=== PATIENT | female | born 1990 | race Caucasian/White ===

== ENCOUNTER 2022-11-19 23:20 | Observation (INO) | payer MEDICAID, SELFPAY ==
[2022-11-19 23:30] VITALS: BP 141/83; PULSE 90; RESP 16; TEMP 36.7; O2SAT 98; BMI 40.8
[2022-11-19 23:44] VITALS: BP 121/84; PULSE 88; RESP 20; O2SAT 97
--- NOTE | 2022-11-19 23:54 | CTR_ITS ---
PROCEDURE INFORMATION: Exam: CT Head Without Contrast Exam date and time: 11/20/2022 12:08 AM Age: 32 years old Clinical indication: Stroke-like symptoms; Dizziness/giddiness and visual disturbance TECHNIQUE: Imaging protocol: Computed tomography of the head without contrast. Radiation optimization: All CT scans at this facility use at least one of these dose optimization techniques: automated exposure control; mA and/or kV adjustment per patient size (includes targeted exams where dose is matched to clinical indication); or iterative reconstruction. Other technique: STROKE PROTOCOL was implemented. REPORTING DATA: Count of CT and Cardiac NM exams in prior 12 months: This patient has received 0 known CTs and 0 known cardiac nuclear medicine studies in the 12 months prior to the current study. COMPARISON: No relevant prior studies available. RADIATION DOSE METRICS: Total DLP (mGy-cm): 1940.58 FINDINGS: Brain: There is no evidence of intracranial hemorrhage. No mass effect or midline shift. Unremarkable white matter. Subtle hypodensity in bilateral parieto-occipital regions. Cerebral ventricles: The ventricles and sulci are appropriate for the patient's age. Paranasal sinuses: There are no air-fluid levels. Mastoid air cells: The visualized mastoid air cells are well aerated. Auditory system: There is an ornamental metallic pin through the left ear pinna. Bones/joints: No acute fracture. Soft tissues: Unremarkable. CT/CT head wo con* [id number] IMPRESSION: Subtle hypodensity in bilateral parieto-occipital regions, raising the question of posterior reversible encephalopathy (PRES). MRI may be helpful for further characterization. ASSESSMENT: ASPECTS ([place] Stroke Program Early CT Score) is 10.
--- NOTE | 2022-11-19 23:55 | ED_ITS ---
HPI - General Adult General: Chief complaint: Eye Problems Stated complaint: eye / head pain Time Seen by Provider: 11/19/22 23:45 History of Present Illness: Patient is a 32-year-old female that presents to the emergency department with complaints of dizziness. Onset of symptoms was prior to arrival. Patient states that she had trouble focusing. She denies any nausea associated with the symptoms but feels like the room is spinning. She denies fever, chills, chest pain, shortness of breath, cough, congestion. She denies abdominal pain, nausea vomiting diarrhea. Patient denies any dysuria, increased frequency, increased urgency. Denies any changes in her menstrual cycle. Review of Systems General: Reports: 10 or more systems reviewed and unremarkable except in HPI and below Physical Exam Const: COMMON NORMALS: no acute distress, patient oriented x3 and alert GENERAL APPEARANCE: cooperative ORIENTATION/CONSCIOUSNESS: Yes awake, Yes oriented to person, Yes oriented to place and Yes oriented to time HENMT: COMMON NORMALS: normocephalic and atraumatic HEAD & SCALP: normocephalic and atraumatic FACE & SINUS: normal facial exam MOUTH: Normal oral and palatal mucosa present THROAT: posterior oropharynx normal Eye: COMMON NORMALS: Equal, round and reactive pupils present, EOMs intact bilaterally, conjunctivae normal and no scleral icterus GENERAL EYE: appearance normal, both eyes and all related structures ALIGNMENT: Yes alignment normal PERIORBITAL: periorbital findings normal CONJUNCTIVA: Yes conjunctivae normal PUPIL: Yes Equal, round and reactive pupils present OTHER: No nystagmus Neck/C-Spine: COMMON NORMALS: full ROM GENERAL: Yes normal visual inspection Lymph: LYMPHATIC: no lymphadenopathy noted Chest: COMMONS NORMALS: normal inspection of the chest Breast/axilla inspection: Yes no chest deformity, asymmetry, normal contours, no nodules, masses, tenderness Resp: COMMON NORMALS: normal respiratory effort, No retractions, No use of accessory muscles and clear to auscultation bilaterally EFFORT & INSPECTION: Yes able to speak in complete sentences and Yes symmetric chest movement AUSCULTATION: clear to auscultation bilaterally Cardio: COMMON NORMALS: regular rate, regular rhythm and Peripheral pulses 2+ throughout RATE: regular rate RHYTHM: regular rhythm PERIPHERAL PULSES: Peripheral pulses 2+ throughout GI: COMMON NORMALS: Normal to inspection, nondistended, normoactive bowel sounds present, Soft to palpation, non-tender and No hepatosplenomegaly present INSPECTION: Yes normal to inspection AUSCULTATION: Yes normoactive bowel so unds PALPATION: Yes Soft to palpation and Yes No hepatosplenomegaly present RECTAL EXAM: deferred Extremity: COMMON NORMALS: normal to inspection GENERAL: Yes normal exam except as noted Neuro: COMMON NORMALS: patient oriented x3 SENSORIUM/ORIENTATION: Yes alert, Yes oriented to person, Yes oriented to place and Yes oriented to time CRANIAL NERVES: Yes CN normal except as noted Psych: COMMON NORMALS: mental status grossly normal, Normal thought process present, cooperative, activity/motor behavior normal, denies homicidal ideation and denies suicidal ideation THOUGHT PROCESS: Normal thought process present Skin: COMMON NORMALS: no rashes or lesions noted, no wounds and turgor normal GENERAL SKIN EXAM: no rashes or lesions noted and turgor normal Course Vital Signs: Vital signs: Vital Signs Temperature 98.1 F 11/19/22 23:30 Pulse Rate 88 11/19/22 23:44 Respiratory Rate 20 H 11/19/22 23:44 Blood Pressure 121/84 11/19/22 23:44 Pulse Oximetry 97 11/19/22 23:44 Oxygen Delivery Me thod Room Air 11/19/22 23:44 MDM - General Adult Medical Decision Making Patient was evaluated in the emergency department for complaints of dizziness and feeling as though the room was spinning. Patient denies any ear pain or use with infections recently Patient states the dizziness developed just prior to arrival Differential diagnosis includes vertigo, intracranial hemorrhage, central versus peripheral. There is no observable nystagmus when at rest but this changes with motion.. She denies any inner ear problems, ear pain, tinnitus. She denies any falls or trauma. Patient has a positive head impulse test Patient underwent a CT head which revealed no acute finding. We obtained a CBC which revealed no acute findings. She does have anemia which is probably chronic in nature. Patient was treated with p.o. fluids and meclizine. To discharge, I was contacted by the [facility] provider who is reading the MRI as possible PRES. mentations that the patient stay as observation and we get an MRI have been made. Of talked with my attending and as well as the hospitalist who was agreed to observe her until morning. We will get an MRI to further evaluate her. Patient updated Lab Data 11/20/22 00:[address] 11/19/22 23:54 IMPRESSION: Subtle hypodensity in bilateral parieto-occipital regions, raising the question of posterior reversible encephalopathy (PRES). MRI may be helpful for further characterization. ASSESSMENT: ASPECTS ([place] Stroke Program Early CT Score) is 10. ADDENDUM: 11/20/22 0100 THIS REPORT CONTAINS FINDINGS THAT MAY BE CRITICAL TO PATIENT CARE. The findings were verbally communicated via telephone conference with RAHEEM RAZA at 12:56 AM CDT on 11/20/2022. The findings were acknowledged and understood. Laboratory Results WBC 9.93 10^3/uL (3.29-11.43) 11/20/22 00:00 RBC 4.35 10^6/uL (3.85-5.65) 11/20/22 00:00 Hgb 11.20 g/dL (11.27-16.99) L 11/20/22 00:00 Hct 35.7 % (36-47) L 11/20/22 00:00 MCV 82.1 fl (85-98) L 11/20/22 00:00 MCH 25.7 pg (27-33) L 11/20/22 00:00 MCHC 31.4 g/dL (30-55) 11/20/22 00:00 RDW 15.0 % (12.1-15.1) 11/20/22 00:00 Plt Count 341 10^3/cmm (157-399) 11/20/22 00:00 MPV 8.5 fL (7.4-10.4) 11/20/22 00:00 Neut % (Auto) 68.8 % 11/20/22 00:00 Lymph % (Auto) 22.1 % 11/20/22 00:00 Whitley % (Auto) 6.8 % 11/20/22 00:00 Eos % (Auto) 1.7 % 11/20/22 00:00 Baso % (Auto) 0.3 % 11/20/22 00:00 Neut # (Auto) 6.83 10^3/uL (1.8-7.7) 11/20/22 00:00 Lymph # (Auto) 2.2 10^3/uL (0.8-4.8) 11/20/22 00:00 Whitley # (Auto) 0.7 10^3/uL (0.2-0.9) 11/20/22 00:00 Eos # (Auto) 0.2 10^3/uL (0.0-0.8) 11/20/22 00:00 Baso # (Auto) 0.0 10^3/uL (0.0-0.1) 11/20/22 00:00 Nucleated RBC % (auto) 0 % 11/20/22 00:00 Nucleated RBCs # 0.0 /100WBC 11/20/22 00:00 Discharge Plan Discharge Patient Disposition: Admitted As Inpatient Clinical Impression: Vertigo Condition: Stable Prescriptions: New meclizine 25 mg tablet 25 mg PO BID Qty: 20 0RF ondansetron 4 mg tablet,disintegrating 4 mg PO Q8H PRN (Reason: nausea and vomiting) 5 Days Qty: 20 0RF Patient Instructions: Benign Paroxysmal Positional Vertigo (ED), Pain Management Stand Alone Forms: Work/School Release Coding Level of Care Code ED [employer]acker for Shayy Tovar
[2022-11-20 00:21] LABS: Basophils % 0.3 %; Eosinophils # 0.2 10^3/uL (0.0-0.8); Eosinophils % 1.7 %; Hematocrit 35.7 % (36-47); Lymphocytes # 2.2 10^3/uL (0.8-4.8); Lymphocytes % 22.1 %; Mean Corpuscular HGB Conc 31.4 g/dL (30-55); Mean Corpuscular Hemoglobin 25.7 pg (27-33); Mean Corpuscular Volume 82.1 fl (85-98); Mean Platelet Volume 8.5 fL (7.4-10.4); Monocytes # 0.7 10^3/uL (0.2-0.9); Monocytes % 6.8 %; Neutrophils # 6.83 10^3/uL (1.8-7.7); Neutrophils % 68.8 %; Nucleated Red Blood Cells % 0 %; Platelet Count 341 10^3/cmm (157-399); Red Blood Count 4.35 10^6/uL (3.85-5.65); White Blood Count 9.93 10^3/uL (3.29-11.43)
[2022-11-20] MEDS: meclizine 25 mg tablet 50 MG PO (00:41)
[2022-11-20 01:46] VITALS: BP 116/85; PULSE 84; RESP 16; O2SAT 97
[2022-11-20 01:57] VITALS: BP 140/82; PULSE 76; RESP 17; TEMP 36.2; O2SAT 97
--- NOTE | 2022-11-20 01:57 | MRR_ITS ---
PROCEDURE INFORMATION: Exam: MR Head Without Contrast Exam date and time: 11/20/2022 9:58 AM Age: 32 years old Clinical indication: Dizziness and visual disturbance; Additional info: Abnormal CT, radiologist says possible pres TECHNIQUE: Imaging protocol: Magnetic resonance imaging of the head without contrast. COMPARISON: CT head wo con* [id number] 11/20/2022 12:08 AM FINDINGS: Brain: Normal. No acute infarct. No hemorrhage. No significant white matter disease. No edema. Cerebral ventricles: Normal. No ventriculomegaly. Bones/joints: Unremarkable. Paranasal sinuses: Normal as visualized. No acute sinusitis. Mastoid air cells: Normal as visualized. No mastoid effusion. Orbital cavities: Unremarkable. Soft tissues: Unremarkable. Other findings: The study is mildly degraded by motion artifact. MR/MR head wo con* [id number] IMPRESSION: Slightly limited but otherwise normal noncontrast MRI of the brain.
--- NOTE | 2022-11-20 02:25 | P.HP_ITS ---
Providers/Chief Complaint Admitting Physician: Marshall Up DO Chief Complaint: eye / head pain History of Present Illness Emmanuelle Mckeon is a 32 year old female with no significant past medical history presents with sudden onset around 1030 tonight dizziness. She states that she can feel her eyes moving. And she is unable to control them. She has blurry vision especially out of the left eye. She states that the most co mfortable position is head down looking down and then she is without symptoms. She denies falling. She states she has been able to walk. Denies other neurologic symptoms or other viral type symptoms. Review of Systems Const: Denies: fever(s) or chills Eyes: Denies: change in vision ENMT: Denies: throat pain or nasal congestion Card: Denies: chest pain or palpitations Resp: Denies: dyspnea or productive cough GI: Denies: abdominal pain, nausea, vomiting or change in stool character : Denies: dysuria Musc: Denies: back pain or extremity pain Skin/Breast: Denies: rash or lesions Neuro: Denies: headache(s) or dizziness Psych: Denies: anxiety or depression Bubba/Lymph: Denies: easy bruising or easy bleeding Medications/Allergies Home Medications Medication Instructions Recorded Confirmed Last Taken Type meclizine 25 mg tablet 25 mg PO BID #20 tabs 11/20/22 Unknown Rx ondansetron 4 mg disintegrating 4 mg PO Q8H PRN nausea and 11/20/22 Unknown Rx tablet vomiting 5 days #20 tabs Allergies Allergy/AdvReac Type Severity Reaction Status Date / Time Sulfa (Sulfonamide Allergy ALGY-Anaphy Verified 11/19/22 23:30 Antibiotics) laxis Vitals/I&O/Wt Last Vital Signs Temp 98.1 F 11/19/22 23:30 Pulse 84 11/20/22 01:46 Resp 16 11/20/22 01:46 BP 116/85 11/20/22 01:46 Pulse Ox 97 11/20/22 01:46 O2 Del Method Room Air 11/19/22 23:44 Weight last 48 hrs Weight 107.955 kg Physical Exam Narrative: 32-year-old female in mild distress due to the sensation of vertigo Neurologic: Alert and oriented to person place time and situation she is nonfocal on exam. She appears to have a horizontal nystagmus to the left. HEENT head is normocephalic atraumatic pupils are round reactive to light and accommodation extraocular muscles are intact nystagmus as above and are moist and pink neck is supple no JVD carotid bruits or lymphadenopathy Heart regular normal S1-S2 without murmurs clicks gallops or rubs Lungs clear to auscultation without wheezes rales or rhonchi Abdomen obese soft nontender nondistended positive bowel sounds Extremities no clubbing cyanosis or edema Back no scoliosis or kyphosis Psych mood and affect are appropriate Skin warm and dry without rashes or lesions Data 11/20/22 00:00 CT Head: My impression: Normal Radiologist's impression: IMPRESSION: Subtle hypodensity in bilateral parieto-occipital regions, raising the question of posterior reversible encephalopathy (PRES). MRI may be helpful for further characterization. A&P Assessment and plan (1) Nystagmus: Appears to have peripheral symptoms likely benign positional vertigo. However due to abnormal CT scan report will place in observation for MRI tomorrow. If MRI negative recommend PT for the Samy maneuver. (2) Vertigo: Meclizine and Zosyn as needed (3) Abnormal CT scan, head: Attestations Medical Necessity Statement*: Patient placed in observation for testing in the morning. Coding Level of Care Code Acute Code for Chg Fwd Diagnoses Nystagmus H55.[address] scan, head R93.0
[2022-11-20] MEDS: LORazepam 2 mg/mL INJ 1 mL 1 MG IVP (02:45)
[2022-11-20 04:00] VITALS: BP 109/71; PULSE 85; RESP 17; TEMP 36.5; O2SAT 97
[2022-11-20 04:25] LABS: HCG Qualitative Urine. Negative (Negative)
[2022-11-20 07:50] VITALS: BP 104/70; PULSE 80; RESP 17; TEMP 36.5; O2SAT 97
--- NOTE | 2022-11-20 10:08 | PC.PHAR ---
pt was in mri when went to go do med rec
[2022-11-20] MEDS: meclizine 25 mg tablet PO (11:15)
[2022-11-20 11:27] LABS: Alanine Aminotransferase 23 U/L (0-33); Albumin Level 3.9 g/dL (3.5-5.2); Alkaline Phosphatase 96 U/L (35-105); Blood Urea Nitrogen 9 mg/dL (6-20); Calcium 8.8 mg/dL (8.5-10.5); Carbon Dioxide 26 mmol/L (22-29); Chloride 104 mmol/L (98-107); Globulin 3.3 g/dL (1.3-4.6); Glomerular Filtration Rate 116.6 mL/min (90-130); Glucose 90 mg/dL (65-115); Osmolality Calculated 284 mOsm/kg (285-295); Sodium 138 mmol/L (136-145); Total Bilirubin 0.3 mg/dL (0.15-1.2); Total Protein 7.2 g/dL (6.6-8.7)
[2022-11-20 11:34] LABS: Anion Gap 12.6 (5-19); Aspartate Amino Transferase 28 U/L (0-32); Potassium 4.6 mmol/L (3.5-5.1)
[2022-11-20 12:00] VITALS: BP 114/73; PULSE 68; RESP 18; TEMP 36.5; O2SAT 98
[2022-11-20 12:19] LABS: Acetaminophen < 5.0 ug/mL (10-30); Alcohol Level < 10 mg/dL (0-10); Salicylate < 0.3 mg/dL (3-10)
[2022-11-20 12:35] LABS: Amphetamines Screen Urine Negative (Negative); Barbiturates Screen Urine Negative (Negative); Benzodiazepines Screen Urine Negative (Negative); Cocaine Screen Urine Negative (Negative); Opiate Screen Urine Negative (Negative); PCP Screen Urine Negative (Negative); THC Screen Urine Negative (Negative)
--- NOTE | 2022-11-20 13:52 | PC.PT ---
Pt was attempted to be seen but had left AMA before therapist could go in and see her.
== END 2022-11-20 11:45 | disposition left against medical advice (07) ==
LOC: ER 11-20 01:08 → MEDSURG 11-20 07:13
PROVIDERS: Admitting Provider Internal Medicine; Emergency Provider Nurse Practitioner; Visit Provider Student in an Organized Health Care Education/Training Program
DX: H55.00 Unspecified nystagmus (principal); R42 Dizziness and giddiness; R93.0 Abnormal findings on diagnostic imaging of skull and head, not elsewhere classified; Z53.29 Procedure and treatment not carried out because of patient's decision for other reasons
CPT/HCPCS: 36415; 70450; 70551; 80053; 80306; 80307; 81025; 85025; 96374; 99285; G0378; J2060; J8597

== ENCOUNTER → 2022-11-27 16:44 | Outpatient (BNVA) | payer MEDICAID, SELFPAY | PROVIDERS: Visit Provider Nurse Practitioner | DX: J06.9 Acute upper respiratory infection, unspecified (principal); J00 Acute nasopharyngitis [common cold] | CPT/HCPCS: 87426 ==